=== PATIENT | female | born 1940 | race African-American/Black ===

== ENCOUNTER 2019-12-28 21:10 | Emergency (ER) | payer MEDICARE, OTHER ==
[~2019-12-28] VITALS: Ht 162.6 cm; Wt 59.0 kg
[2019-12-28] MEDS ORDERED: Omnipaque-300 100ml vial INJ ONE (22:00)
--- NOTE | 2019-12-28 22:07 | Emergency Room Report ---
History of Present Illness General Chief Complaint: Chest Pain Source: Patient Present Illness HPI Patient is a 79-year-old female who presents after increased chest and abdominal pain for approximately 2 days. Patient had intermittent episodes of pain. Denies any shortness of breath. Patient was being seen by home health. Previous history of right-sided glass eye. Not been having any fever. Denies any shortness of breath. Had increased abdominal discomfort and had been having intermittent bowel movements. Patient been taking stool softeners. Apparently she was in hospice for unknown reason. Had previous hospitalization at [facility]. Allergies: Coded Allergies: No Known Allergies (Unverified , 12/28/19) COVID-19 Screening Contact w/high risk pt: No Experienced COVID-19 symptoms?: No COVID-19 Testing performed BRAND ANALYST: No Patient History Past Medical History: see triage record Last Menstrual Period: NA Now: No : 6 Para: 5 Reviewed Nursing Documentation: PMH: Agreed; PSxH: Agreed Nursing Documentation-PMH Hx Hypertension: Yes - previous dx History Of Psychiatric Problem: Yes - depression Review of Systems All Other Systems: negative except mentioned in HPI Physical Exam Vital Signs Date Time Temp Pulse Resp B/P (MAP) Pulse Ox O2 Delivery O2 Flow Rate FiO2 12/28/19 21:14 97.7 83 17 161/95 (117) 91 Room Air Sp02 EP Interpretation: reviewed, normal General Appearance: normal inspection, alert, GCS 15, Chronically Ill Head: atraumatic Eyes: bilateral eye other - With ENT: normal ENT inspection, hearing grossly normal, normal voice Neck: normal inspection, supple, no bony tend, limited range of motion Respiratory: normal inspection, lungs clear, normal breath sounds, no respiratory distress, no retraction, no wheezing Cardiovascular #1: regular rate, rhythm, no edema Gastrointestinal: normal inspection, non tender, soft, no guarding Genitourinary: no CVA tenderness Musculoskeletal: normal inspection, normal range of motion Neurologic: alert, motor strength/tone normal, senior research analyst III-XII nml as tested, oriented x3, responsive, speech normal, normal inspection, other - Right eye with some decreased lid movement. Psychiatric: normal inspection, judgement/insight normal, mood/affect normal Medical Decision Making Diagnostic Impression: Primary Impression: Chest pain ER Course Patient presented for chest pain. Differential diagnosis include was not limited to pneumonia, gastritis, fecal impaction among others. Because of comp lexity of patient's case laboratory tests and imaging studies were ordered. EKG interpreted by me showed normal sinus rhythm with a rate of [address] or T wave changes. Patient was noted to have 100% oxygen saturation on room air.I initially ordered laboratory testing as well as CT however patient stated that she wanted to leave the hospital and felt better.CT imaging of the chest abdomen pelvis read by radiology showed no evidence of acute infiltrate with large amount of retained stool. See radiology report for full details. Patient became impatient and wanted to leave the hospital immediately without testing results. Patient was advised risk benefits alternatives of leaving the hospital AGAINST MEDICAL ADVICE indicated understanding and all questions were answered. Appears to have capacity for refusal. Patient left hospital AGAINST MEDICAL ADVICE. Patient was advised to follow-up with primary care physician and return if she changed her mind. Last Vital Signs Date Time Temp Pulse Resp B/P (MAP) Pulse Ox O2 Delivery O2 Flow Rate FiO2 12/28/19 21:14 97.7 83 17 161/95 (117) 91 Room Air Status: improved Disposition: AGAINST MEDICAL ADVICE Condition: Stable Scripts Lactulose (LACTULOSE) 10 Gm/15 Ml Solution 10 GM PO THREE TIMES A DAY, #120 ML Prov: Collin Sam MD 12/28/19 Cephalexin* (KEFLEX*) 500 Mg Capsule 500 MG ORAL EVERY 6 HOURS, #28 CAP Prov: Collin Sam MD 12/28/19 Collin Sam MD Dec 28, 2019 22:07
[2019-12-28 22:41] LABS: APPEARANCE,URINE SLIGHTLY CLOUDY; BILIRUBIN, URINE NEGATIVE (NEGATIVE); GLUCOSE, URINE (UA) NEGATIVE (NEGATIVE); KETONES,URINE NEGATIVE (NEGATIVE); LEUKOCYTE ESTERASE ,URINE 3+ (NEGATIVE); NITRITE,URINE POSITIVE (NEGATIVE); PH,URINE 6 (4.5-8.0); PROTEIN,URINE NEGATIVE (NEGATIVE); UROBILINOGEN,URINE 1 MG/DL (0.0-1.0)
[2019-12-28 22:58] VITALS: BP 161/95
[2019-12-28 23:01] LABS: COLOR,URINE YELLOW
[2019-12-28] MEDS ORDERED: LACTULOSE10 GM/153 PO (23:04)
[2019-12-28] MEDS ORDERED: CEPHALEXIN500 MG ORAL (23:04)
--- NOTE | 2019-12-28 23:13 | Diagnostic Imaging Report ---
EXAM: CT Abdomen and Pelvis Without Intravenous Contrast CLINICAL HISTORY: ABD PAIN TECHNIQUE: Axial computed tomography images of the abdomen and pelvis without intravenous contrast. CTDI is 5.5 mGy and DLP is 326.2 mGy-cm. One or more of the following dose reduction techniques were used: automated exposure control, adjustment of the mA and/or kV according to patient size, use of iterative reconstruction technique. COMPARISON: No relevant prior studies available. FINDINGS: Lung bases: No mass. No consolidation. ABDOMEN: Liver: Mildly nodular. Gallbladder and bile ducts: Unremarkable. Pancreas: No ductal dilation. Spleen: Unremarkable. Adrenals: Unremarkable. Kidneys and ureters: No obstructing stones. No hydronephrosis. Stomach and bowel: No bowel obstruction. No bowel wall thickening. Copious amounts of stool throughout the colon. Mild colonic diverticulosis. PELVIS: Appendix: No evidence of appendicitis. Bladder: No stones. Reproductive: Unremarkable. ABDOMEN and PELVIS: Intraperitoneal space: Unremarkable. Bones/joints: No acute fractures. Soft tissues: There is soft tissue thickening and some inflammatory changes in the sacral decubitus area. Vasculature: No abdominal aortic aneurysm. Lymph nodes: No enlarged lymph nodes. IMPRESSION: Overall Limited exam due to lack of contrast. 1. Colonic diverticulosis without diverticulitis. 2. Copious amounts of stool throughout the colon. 3. There is soft tissue thickening and some inflammatory changes in the mid to left sacral decubitus area. Likely developing sacral decubitus ulcer/infection. No definite abscess. EXAM: CT Chest Without Intravenous Contrast CLINICAL HISTORY: ABD PAIN TECHNIQUE: Axial computed tomography images of the chest without intravenous contrast. CTDI is 5.5 mGy and DLP is 326.2 mGy-cm. One or more of the following dose reduction techniques were used: automated exposure control, adjustment of the mA and/or kV according to patient size, use of iterative reconstruction technique. COMPARISON: No relevant prior studies available. FINDINGS: Lungs: Calcified granuloma in the right middle lobe. Bilateral linear lower lobe opacities. Pleural space: No pneumothorax. Trace right effusion. Heart: Upper limits of normal for heart size. No pericardial effusion. Bones/joints: No acute fracture. Mild anterior wedging of T10 without retropulsion, likely chronic. Soft tissues: Unremarkable. Vasculature: Unremarkable. No thoracic aortic aneurysm. Lymph nodes: No enlarged lymph nodes. Calcified lymph nodes. Upper abdomen: Mild hiatal hernia. IMPRESSION: 1. Trace right pleural effusion. 2. Bilateral linear lower lobe opacities along the airway. Likely from chronic airway disease/scarring versus subsegmental atelectasis.
[2019-12-28] MEDS ORDERED: Cephalexin 500mg cap ORAL ONE (23:15)
[2019-12-28 23:20] VITALS: BP 154/89
--- NOTE | 2019-12-29 11:47 | Diagnostic Imaging Report ---
Procedure: XRAY Chest 1v Reason for study: Chest pain. Comparison films: None. FINDINGS: A single one view chest is obtained. Vascularity is normal. Calcified granuloma noted at the right lung base. Calcified lymph nodes also at the right lower paratracheal right suprahilar region. Cardiac and mediastinal silhouette are within normal limits. CP angles are sharp. The bony thorax appear unremarkable. IMPRESSION: Old granulomatous disease. No acute alveolar process.
== END 2019-12-28 23:20 | disposition home or self-care (01) ==
LOC: EMR 21:40
DX: R07.9 Chest pain, unspecified (principal); F32.9 Major depressive disorder, single episode, unspecified; I10 Essential (primary) hypertension
CPT/HCPCS: 71045; 71250; 74176; 81003; 87086; 93005; 99284; J2405